=== PATIENT | female | born 1960 | race African-American/Black ===

== ENCOUNTER 2020-11-07 18:11 | Inpatient (IN) | payer MEDICAID ==
[~2020-11-07] VITALS: Ht 160 cm; Wt 72.6 kg
[~2020-11-07 18:11] MED LIST: ALBU05 IH; AMLO10TA4 PO; BACL-141 PO; BISA10SU62 RC; CLON0.1T GT; DEXT1DRO6 OP; DOCU-138 GT; FERR220S12 PO; FRUC15LI PO; HYDR-4134 PO; MOM PO; MULT-1146 PO; NA P230E RC; OMEP20CA14 PO; ONDA4SOL2 PO; POLY17PO3 PO; TOPUD GT
[2020-11-07 19:22] LABS: BASOPHILS % 0.3 % (0.0-2.0); CHLORIDE 104 mEq/L (98-107); EOSINOPHILS % 2.4 % (0.0-5.0); HEMATOCRIT. 31.7 % (36.0-48.0); HEMOGLOBIN. 10.8 g/dL (12.0-16.0); LYMPHOCYTES % 34.9 % (20.0-50.0); MEAN CORPUSCULAR HEMOGLOBIN 28.7 pg (28.0-32.0); MEAN CORPUSCULAR VOLUME 84.7 fL (81.0-99.0); MEAN PLATELET VOLUME 11.3 fl (7.4-10.4); MONOCYTES % 9.3 % (2.0-8.0); NEUTROPHILS % 53.1 % (40.0-76.0); PLATELET 157 x1000/uL (130-400); RED BLOOD CELL COUNT 3.74 mill/uL (4.2-5.4); RED CELL DISTRIBUTION WIDTH 14.5 % (11.6-14.6)
[2020-11-07 19:27] LABS: PROTHROMBIN TIME 10.3 sec (9.6-11.0)
[2020-11-07] MEDS ORDERED: CEFTRIAXONE 1 G PREMIX 50 ML IV NR (21:00)
[2020-11-07] MEDS ORDERED: IOHEXOL-300 100 ML BOTTLE ONE (22:38)
[2020-11-08] MEDS ORDERED: MAGNESIUM/ALUMINUM HYDROXIDE/SIMETHICONE 30ML UDC PO PRN (09:45)
[2020-11-08] MEDS ORDERED: CLONIDINE 0.1MG TABLET PO PRN (09:45)
[2020-11-08] MEDS ORDERED: ONDANSETRON HCL 4MG/2ML INJ IV PRN (09:45)
[2020-11-08] MEDS ORDERED: ACETAMINOPHEN 650MG SUPP PR PRN (09:45)
[2020-11-08] MEDS ORDERED: IPRATROPIUM/ALBUTEROL 0.5-3(2.5)MG/3ML NEB HHN PRN (09:45)
[2020-11-08] MEDS ORDERED: DOCUSATE SODIUM 100MG CAPSULE PO PRN (09:45)
[2020-11-08 12:14] LABS: CLARITY URINE CLOUDY (CLEAR); COLOR URINE DARK YELLOW (YELLOW); KETONES URINE NEGATIVE (NEGATIVE); LEUKOCYTE ESTERASE URINE 2+ (NEGATIVE); NITRITE URINE NEGATIVE (NEGATIVE); OCCULT BLOOD URINE TRACE (NEGATIVE); PH URINE >=9.0 (4.5-8.0); PROTEIN URINE 3+ (NEGATIVE); SPECIFIC GRAVITY URINE 1.053 (1.005-1.030)
[2020-11-08] MEDS: PANTOPRAZOLE SODIUM 40 MG/VIAL IV SCH (12:50)
[2020-11-08] MEDS: ENOXAPARIN 40MG/0.4ML SYR SUBCUT SCH (12:50)
[2020-11-08 13:47] LABS: BG BASE EXCESS 3.3 mmol/L (-2.0-2.0); BG CARBOXYHEMOGLOBIN 0.3 % (0.5-1.5); BG DEOXYHEMOGLOBIN 1.4 % (0.0-5.0); BG FRACTION INSPIRED OXYGEN 50; BG METHEMOGLOBIN 0.3 % (0.0-1.5); BG OXYGEN SATURATION 98.6 % (92.0-98.5); BG PCO2 33.2 mmHg (35.0-45.0); BG PH 7.512 (7.350-7.450); BG PO2 134.2 mmHg (75.0-100.0); BG SAMPLE SITE RIGHT RADIAL; BG TOTAL HEMOGLOBIN 11.2 g/dL (12.0-18.0); BG TOTAL RESPIRATORY RATE 14 b/min; BG VENT MODE VENT - AC
[2020-11-08 15:34] LABS: TOTAL IRON BINDING CAPACITY 200 ug/dL (250-450)
[2020-11-08 16:00] LABS: VITAMIN B12 SERUM >2000 pg/mL pg/mL (211-911)
[2020-11-08 16:21] LABS: FERRITIN 1774 ng/mL (10-291)
[2020-11-08] MEDS: AZITHROMYCIN 500 MG in DEXT 5% WATER 250 ML IV SCH (18:18)
[2020-11-08] MEDS: PIPERACILLIN/TAZOBACTAM 3.375 G in DEXT 5% WATER 100 ML IV SCH (18:18)
[2020-11-08] MEDS: IPRATROPIUM/ALBUTEROL 0.5-3(2.5)MG/3ML NEB HHN SCH (20:23)
[2020-11-08 21:36] LABS: CREATINE KINASE 685 IU/L (26-192)
[2020-11-09] MEDS ORDERED: ACETYLCYSTEINE 100MG/ML 10% VIAL 4ML INH SCH
[2020-11-09] MEDS: PIPERACILLIN/TAZOBACTAM 3.375 G in DEXT 5% WATER 100 ML IV SCH ×4 (00:37→19:25)
[2020-11-09] MEDS: IPRATROPIUM/ALBUTEROL 0.5-3(2.5)MG/3ML NEB HHN SCH ×5 (01:36→20:50)
[2020-11-09 08:03] LABS: BASOPHILS % 0.3 % (0.0-2.0); HEMATOCRIT. 30.9 % (36.0-48.0); HEMOGLOBIN. 10.3 g/dL (12.0-16.0); LYMPHOCYTES % 27.9 % (20.0-50.0); MEAN CORPUSCULAR HEMOGLOBIN 28.9 pg (28.0-32.0); MEAN CORPUSCULAR VOLUME 86.7 fL (81.0-99.0); MEAN PLATELET VOLUME 9.3 fl (7.4-10.4); MONOCYTES % 13.7 % (2.0-8.0); NEUTROPHILS % 55.1 % (40.0-76.0); PLATELET 134 x1000/uL (130-400); RED BLOOD CELL COUNT 3.57 mill/uL (4.2-5.4); RED CELL DISTRIBUTION WIDTH 14.7 % (11.6-14.6)
[2020-11-09 08:18] LABS: CHLORIDE 101 mEq/L (98-107)
[2020-11-09 08:26] LABS: LDL CHOLESTEROL 67 mg/dL (5-100)
[2020-11-09 08:28] LABS: HDL CHOLESTEROL 36 mg/dL (40-59)
[2020-11-09 08:29] LABS: T4 FREE 1.34 ng/dL (0.76-1.46)
[2020-11-09] MEDS: ENOXAPARIN 40MG/0.4ML SYR SUBCUT SCH (11:00)
[2020-11-09] MEDS: PANTOPRAZOLE SODIUM 40 MG/VIAL IV SCH (12:42)
[2020-11-09] MEDS: ACETYLCYSTEINE 100MG/ML 10% VIAL 4ML INH SCH (15:27)
[2020-11-09] MEDS ORDERED: NOREPINEPHRINE 8MG/250ML PMX 250 ML IV PRN (18:00)
[2020-11-09] MEDS ORDERED: KCL 20MEQ/100ML PREMIX 100 ML IV NR (18:30)
[2020-11-09] MEDS: AZITHROMYCIN 500 MG in DEXT 5% WATER 250 ML IV SCH (20:14)
[2020-11-10] MEDS: PIPERACILLIN/TAZOBACTAM 3.375 G in DEXT 5% WATER 100 ML IV SCH ×2 (00:10→06:07)
[2020-11-10] MEDS: ACETYLCYSTEINE 100MG/ML 10% VIAL 4ML INH SCH ×4 (00:33→16:05)
[2020-11-10] MEDS: IPRATROPIUM/ALBUTEROL 0.5-3(2.5)MG/3ML NEB HHN SCH ×7 (00:33→21:31)
[2020-11-10 04:26] LABS: BASOPHILS % 0.4 % (0.0-2.0); EOSINOPHILS % 4.9 % (0.0-5.0); HEMATOCRIT. 31.5 % (36.0-48.0); HEMOGLOBIN. 10.6 g/dL (12.0-16.0); LYMPHOCYTES % 28.8 % (20.0-50.0); MEAN CORPUSCULAR VOLUME 85.7 fL (81.0-99.0); MEAN PLATELET VOLUME 9.7 fl (7.4-10.4); MONOCYTES % 14.2 % (2.0-8.0); NEUTROPHILS % 51.7 % (40.0-76.0); PLATELET 170 x1000/uL (130-400); RED BLOOD CELL COUNT 3.67 mill/uL (4.2-5.4); RED CELL DISTRIBUTION WIDTH 14.2 % (11.6-14.6)
[2020-11-10 04:38] LABS: CHLORIDE 110 mEq/L (98-107)
[2020-11-10] MEDS: PANTOPRAZOLE SODIUM 40 MG/VIAL IV SCH (09:00)
[2020-11-10] MEDS: ENOXAPARIN 40MG/0.4ML SYR SUBCUT SCH (11:00)
[2020-11-10] MEDS: MIDODRINE HCL 5MG TABLET PO SCH ×3 (11:45→17:53)
[2020-11-10] MEDS: PIPERACILLIN/TAZ 3.375G PREMIX 50 ML IV SCH ×2 (12:00→18:00)
[2020-11-10] MEDS ORDERED: NOREPINEPHRINE 8 MG in DEXTROSE 5% WATER 250 ML IV PRN (13:00)
[2020-11-10] MEDS: AZITHROMYCIN 500 MG in DEXT 5% WATER 250 ML IV SCH (18:00)
[2020-11-11] MEDS: PIPERACILLIN/TAZ 3.375G PREMIX 50 ML IV SCH ×4 (00:30→19:07)
[2020-11-11] MEDS: IPRATROPIUM/ALBUTEROL 0.5-3(2.5)MG/3ML NEB HHN SCH ×6 (00:56→20:23)
[2020-11-11] MEDS: ACETYLCYSTEINE 100MG/ML 10% VIAL 4ML INH SCH ×2 (00:56→14:56)
[2020-11-11] MEDS: MIDODRINE HCL 5MG TABLET PO SCH ×3 (09:00→17:00)
[2020-11-11] MEDS: PANTOPRAZOLE SODIUM 40 MG/VIAL IV SCH (11:00)
[2020-11-11] MEDS: ENOXAPARIN 40MG/0.4ML SYR SUBCUT SCH (17:00)
[2020-11-11] MEDS: AZITHROMYCIN 500 MG in DEXT 5% WATER 250 ML IV SCH (19:07)
[2020-11-12] MEDS: PIPERACILLIN/TAZ 3.375G PREMIX 50 ML IV SCH ×2 (00:39→06:09)
[2020-11-12] MEDS: IPRATROPIUM/ALBUTEROL 0.5-3(2.5)MG/3ML NEB HHN SCH ×6 (01:13→21:41)
[2020-11-12] MEDS: ACETYLCYSTEINE 100MG/ML 10% VIAL 4ML INH SCH (01:13)
[2020-11-12 05:40] LABS: BASOPHILS % 0.4 % (0.0-2.0); CHLORIDE 109 mEq/L (98-107); EOSINOPHILS % 4.6 % (0.0-5.0); HEMATOCRIT. 30.9 % (36.0-48.0); HEMOGLOBIN. 10.4 g/dL (12.0-16.0); LYMPHOCYTES % 20.8 % (20.0-50.0); MEAN CORPUSCULAR HEMOGLOBIN 28.8 pg (28.0-32.0); MEAN CORPUSCULAR VOLUME 85.3 fL (81.0-99.0); MEAN PLATELET VOLUME 9.6 fl (7.4-10.4); MONOCYTES % 9.3 % (2.0-8.0); NEUTROPHILS % 64.9 % (40.0-76.0); PLATELET 212 x1000/uL (130-400); RED BLOOD CELL COUNT 3.62 mill/uL (4.2-5.4); RED CELL DISTRIBUTION WIDTH 14.5 % (11.6-14.6)
[2020-11-12] MEDS: MIDODRINE HCL 5MG TABLET PO SCH ×3 (09:00→17:00)
[2020-11-12] MEDS: PANTOPRAZOLE SODIUM 40 MG/VIAL IV SCH (09:29)
[2020-11-12] MEDS ORDERED: POTASSIUM CHLORIDE 20MEQ TABLET SR PO NR (10:30)
[2020-11-12] MEDS ORDERED: VANCOMYCIN 1 G PREMIX 200 ML IV SCH (11:00)
[2020-11-12] MEDS: ENOXAPARIN 40MG/0.4ML SYR SUBCUT SCH (11:08)
[2020-11-12] MEDS: PIPERACILLIN/TAZOBACTAM 3.375 G in DEXT 5% WATER 100 ML IV SCH ×2 (12:16→18:00)
[2020-11-12] MEDS: AZITHROMYCIN 500 MG in DEXT 5% WATER 250 ML IV SCH (18:22)
[2020-11-12] MEDS: LORAZEPAM 2MG/ML CPJ IV PRN (20:53)
[2020-11-12] MEDS ORDERED: VANCOMYCIN 750 MG PREMIX 150 ML IV SCH (23:00)
[2020-11-12] MEDS: ASCORBIC ACID 500 MG TABLET GT SCH (23:30)
[2020-11-12] MEDS: MULTIVITAMINS,THER W-MINERALS TABLET GT SCH (23:48)
[2020-11-13] VITALS (20 sets, daily range): BP systolic 56–136; BP diastolic 31–79
[2020-11-13] MEDS: ACETYLCYSTEINE 100MG/ML 10% VIAL 4ML INH SCH ×4 (00:43→16:30)
[2020-11-13] MEDS: IPRATROPIUM/ALBUTEROL 0.5-3(2.5)MG/3ML NEB HHN SCH ×6 (00:47→21:11)
[2020-11-13] MEDS: PIPERACILLIN/TAZOBACTAM 3.375 G in DEXT 5% WATER 100 ML IV SCH ×5 (06:00→20:23)
[2020-11-13 06:22] LABS: BASOPHILS % 0.3 % (0.0-2.0); EOSINOPHILS % 3.2 % (0.0-5.0); HEMATOCRIT. 33.1 % (36.0-48.0); HEMOGLOBIN. 10.9 g/dL (12.0-16.0); LYMPHOCYTES % 12.2 % (20.0-50.0); MEAN CORPUSCULAR HEMOGLOBIN 28.6 pg (28.0-32.0); MEAN CORPUSCULAR VOLUME 86.4 fL (81.0-99.0); MEAN PLATELET VOLUME 9.5 fl (7.4-10.4); MONOCYTES % 8.9 % (2.0-8.0); NEUTROPHILS % 75.4 % (40.0-76.0); PLATELET 226 x1000/uL (130-400); RED BLOOD CELL COUNT 3.83 mill/uL (4.2-5.4); RED CELL DISTRIBUTION WIDTH 14.7 % (11.6-14.6)
[2020-11-13 06:29] LABS: CHLORIDE 107 mEq/L (98-107)
[2020-11-13] MEDS: MULTIVITAMINS,THER W-MINERALS TABLET GT SCH (10:27)
[2020-11-13] MEDS: ASCORBIC ACID 500 MG TABLET GT SCH ×2 (10:27→17:08)
[2020-11-13] MEDS: PANTOPRAZOLE SODIUM 40 MG/VIAL IV SCH (10:27)
[2020-11-13] MEDS: MIDODRINE HCL 5MG TABLET PO SCH ×3 (10:27→17:08)
[2020-11-13] MEDS: POTASSIUM CHLORIDE 20MEQ TABLET SR PO SCH (12:29)
[2020-11-13] MEDS: ENOXAPARIN 40MG/0.4ML SYR SUBCUT SCH (12:29)
[2020-11-14] VITALS (47 sets, daily range): BP systolic 84–124; BP diastolic 20–95
[2020-11-14] MEDS: IPRATROPIUM/ALBUTEROL 0.5-3(2.5)MG/3ML NEB HHN SCH ×6 (00:43→20:09)
[2020-11-14] MEDS: LORAZEPAM 2MG/ML CPJ IV PRN ×2 (06:32→17:06)
[2020-11-14] MEDS: ACETYLCYSTEINE 100MG/ML 10% VIAL 4ML INH SCH (08:10)
[2020-11-14] MEDS: POTASSIUM CHLORIDE 20MEQ TABLET SR PO SCH (09:06)
[2020-11-14] MEDS: MULTIVITAMINS,THER W-MINERALS TABLET GT SCH (09:06)
[2020-11-14] MEDS: PANTOPRAZOLE SODIUM 40 MG/VIAL IV SCH (09:06)
[2020-11-14] MEDS: ASCORBIC ACID 500 MG TABLET GT SCH ×2 (09:06→16:42)
[2020-11-14] MEDS: MIDODRINE HCL 5MG TABLET PO SCH ×3 (09:06→16:43)
[2020-11-14] MEDS: ENOXAPARIN 40MG/0.4ML SYR SUBCUT SCH (11:25)
[2020-11-15] VITALS (83 sets, daily range): BP systolic 79–177; BP diastolic 41–134
[2020-11-15] MEDS: IPRATROPIUM/ALBUTEROL 0.5-3(2.5)MG/3ML NEB HHN SCH ×6 (00:07→21:57)
[2020-11-15 05:34] LABS: BASOPHILS % 0.2 % (0.0-2.0); EOSINOPHILS % 2.1 % (0.0-5.0); HEMOGLOBIN. 9.6 g/dL (12.0-16.0); LYMPHOCYTES % 13.7 % (20.0-50.0); MEAN CORPUSCULAR HEMOGLOBIN 28.4 pg (28.0-32.0); MEAN CORPUSCULAR VOLUME 85.9 fL (81.0-99.0); MEAN PLATELET VOLUME 10.1 fl (7.4-10.4); MONOCYTES % 8.4 % (2.0-8.0); NEUTROPHILS % 75.6 % (40.0-76.0); PLATELET 292 x1000/uL (130-400); RED BLOOD CELL COUNT 3.38 mill/uL (4.2-5.4); RED CELL DISTRIBUTION WIDTH 14.9 % (11.6-14.6)
[2020-11-15 05:35] LABS: CHLORIDE 111 mEq/L (98-107)
[2020-11-15 06:22] LABS: HEPATITIS B SURFACE ANTIGEN NEGATIVE
[2020-11-15 06:51] LABS: HEPATITIS A AB IGM NEGATIVE (NEGATIVE)
[2020-11-15] MEDS: ASCORBIC ACID 500 MG TABLET GT SCH ×2 (08:12→16:32)
[2020-11-15] MEDS: PANTOPRAZOLE SODIUM 40 MG/VIAL IV SCH (08:12)
[2020-11-15] MEDS: MULTIVITAMINS,THER W-MINERALS TABLET GT SCH (08:13)
[2020-11-15] MEDS: MIDODRINE HCL 5MG TABLET PO SCH ×3 (08:13→16:32)
[2020-11-15] MEDS: POTASSIUM CHLORIDE 20MEQ TABLET SR PO SCH (08:13)
[2020-11-15] MEDS: ENOXAPARIN 40MG/0.4ML SYR SUBCUT SCH (10:32)
[2020-11-15] MEDS ORDERED: SODIUM CHLORIDE 0.9% 500 ML IV NR (14:45)
[2020-11-16] VITALS (61 sets, daily range): BP systolic 52–131; BP diastolic 22–86
[2020-11-16] MEDS: IPRATROPIUM/ALBUTEROL 0.5-3(2.5)MG/3ML NEB HHN SCH ×6 (01:01→21:13)
[2020-11-16] MEDS: PANTOPRAZOLE SODIUM 40 MG/VIAL IV SCH (09:20)
[2020-11-16] MEDS: MIDODRINE HCL 5MG TABLET PO SCH (09:21)
[2020-11-16] MEDS: POTASSIUM CHLORIDE 20MEQ TABLET SR PO SCH (09:23)
[2020-11-16] MEDS: MULTIVITAMINS,THER W-MINERALS TABLET GT SCH (09:24)
[2020-11-16] MEDS: ASCORBIC ACID 500 MG TABLET GT SCH (09:24)
[2020-11-16] MEDS: ENOXAPARIN 40MG/0.4ML SYR SUBCUT SCH (10:46)
[2020-11-17] VITALS (59 sets, daily range): BP systolic 62–165; BP diastolic 19–111
[2020-11-17] MEDS: IPRATROPIUM/ALBUTEROL 0.5-3(2.5)MG/3ML NEB HHN SCH ×6 (00:51→20:47)
[2020-11-17] MEDS: POTASSIUM CHLORIDE 20MEQ TABLET SR PO SCH (09:27)
[2020-11-17] MEDS: PANTOPRAZOLE SODIUM 40 MG/VIAL IV SCH (09:27)
[2020-11-17] MEDS: MULTIVITAMINS,THER W-MINERALS TABLET GT SCH (09:28)
[2020-11-17] MEDS: ASCORBIC ACID 500 MG TABLET GT SCH ×2 (09:31→17:24)
[2020-11-17] MEDS: MIDODRINE HCL 5MG TABLET PO SCH ×3 (09:32→17:25)
[2020-11-17] MEDS: ENOXAPARIN 40MG/0.4ML SYR SUBCUT SCH (11:00)
[2020-11-17 13:09] LABS: HEMATOCRIT 28.1 % (36.0-48.0); HEMOGLOBIN 9.3 g/dL (12.0-16.0); MEAN CORPUSCULAR HEMOGLOBIN 28.8 pg (28.0-32.0); MEAN CORPUSCULAR VOLUME 86.8 fL (81.0-99.0); PLATELET 273 x1000/uL (130-400); RED BLOOD CELL COUNT 3.24 mill/uL (4.2-5.4); RED CELL DISTRIBUTION WIDTH 14.9 % (11.6-14.6)
[2020-11-17 13:33] LABS: CHLORIDE 112 mEq/L (98-107)
[2020-11-17 14:41] LABS: BG BASE EXCESS 0.3 mmol/L (-2.0-2.0); BG CARBOXYHEMOGLOBIN 0.3 % (0.5-1.5); BG DEOXYHEMOGLOBIN 1.5 % (0.0-5.0); BG FRACTION INSPIRED OXYGEN 40; BG HCO3 ACT 24.5 mmol/L (22.0-26.0); BG METHEMOGLOBIN 0.3 % (0.0-1.5); BG OXYGEN SATURATION 98.5 % (92.0-98.5); BG OXYHEMOGLOBIN 97.9 % (94.0-97.0); BG PH 7.428 (7.350-7.450); BG PO2 135.1 mmHg (75.0-100.0); BG SAMPLE SITE RIGHT BRACHIAL; BG TOTAL HEMOGLOBIN 10.4 g/dL (12.0-18.0); BG VENT MODE VENT - AC
[2020-11-18] VITALS (45 sets, daily range): BP systolic 69–145; BP diastolic 34–95
[2020-11-18] MEDS: IPRATROPIUM/ALBUTEROL 0.5-3(2.5)MG/3ML NEB HHN SCH ×6 (00:52→20:06)
[2020-11-18] MEDS: PANTOPRAZOLE SODIUM 40 MG/VIAL IV SCH (10:31)
[2020-11-18] MEDS: MULTIVITAMINS,THER W-MINERALS TABLET GT SCH (10:32)
[2020-11-18] MEDS: ASCORBIC ACID 500 MG TABLET GT SCH ×2 (10:32→16:36)
[2020-11-18] MEDS: ENOXAPARIN 40MG/0.4ML SYR SUBCUT SCH (10:33)
[2020-11-18] MEDS: MIDODRINE HCL 5MG TABLET PO SCH ×3 (10:35→16:36)
[2020-11-19] VITALS (33 sets, daily range): BP systolic 97–150; BP diastolic 19–86
[2020-11-19] MEDS: IPRATROPIUM/ALBUTEROL 0.5-3(2.5)MG/3ML NEB HHN SCH ×5 (00:05→16:26)
[2020-11-19] MEDS: PANTOPRAZOLE SODIUM 40 MG/VIAL IV SCH (08:21)
[2020-11-19] MEDS: MIDODRINE HCL 5MG TABLET PO SCH ×3 (08:21→16:58)
[2020-11-19] MEDS: MULTIVITAMINS,THER W-MINERALS TABLET GT SCH (08:22)
[2020-11-19] MEDS: ASCORBIC ACID 500 MG TABLET GT SCH ×2 (08:22→16:58)
[2020-11-19 09:33] LABS: BASOPHILS % 0.4 % (0.0-2.0); HEMATOCRIT. 30.5 % (36.0-48.0); HEMOGLOBIN. 10.1 g/dL (12.0-16.0); LYMPHOCYTES % 28.6 % (20.0-50.0); MEAN CORPUSCULAR HEMOGLOBIN 28.5 pg (28.0-32.0); MEAN CORPUSCULAR VOLUME 85.8 fL (81.0-99.0); MEAN PLATELET VOLUME 9.3 fl (7.4-10.4); MONOCYTES % 10.8 % (2.0-8.0); NEUTROPHILS % 55.2 % (40.0-76.0); PLATELET 263 x1000/uL (130-400); RED BLOOD CELL COUNT 3.56 mill/uL (4.2-5.4); RED CELL DISTRIBUTION WIDTH 15.1 % (11.6-14.6)
[2020-11-19 09:42] LABS: CHLORIDE 109 mEq/L (98-107)
[2020-11-19] MEDS: ENOXAPARIN 40MG/0.4ML SYR SUBCUT SCH (19:01)
[2020-11-20] VITALS (33 sets, daily range): BP systolic 98–154; BP diastolic 37–89
[2020-11-20] MEDS: IPRATROPIUM/ALBUTEROL 0.5-3(2.5)MG/3ML NEB HHN SCH ×4 (00:45→23:50)
[2020-11-20] MEDS: MULTIVITAMINS,THER W-MINERALS TABLET GT SCH (09:00)
[2020-11-20] MEDS: MIDODRINE HCL 5MG TABLET PO SCH ×3 (09:17→17:55)
[2020-11-20] MEDS: ASCORBIC ACID 500 MG TABLET GT SCH ×2 (09:17→17:55)
[2020-11-20] MEDS: PANTOPRAZOLE SODIUM 40 MG/VIAL IV SCH (09:17)
[2020-11-20] MEDS: ENOXAPARIN 40MG/0.4ML SYR SUBCUT SCH (09:18)
[2020-11-21] VITALS (37 sets, daily range): BP systolic 57–173; BP diastolic 24–123
[2020-11-21 06:03] LABS: BASOPHILS % 0.4 % (0.0-2.0); EOSINOPHILS % 4.9 % (0.0-5.0); HEMATOCRIT. 29.3 % (36.0-48.0); HEMOGLOBIN. 9.7 g/dL (12.0-16.0); LYMPHOCYTES % 30.1 % (20.0-50.0); MEAN CORPUSCULAR HEMOGLOBIN 28.8 pg (28.0-32.0); MEAN CORPUSCULAR VOLUME 87.6 fL (81.0-99.0); MEAN PLATELET VOLUME 9.4 fl (7.4-10.4); MONOCYTES % 10.7 % (2.0-8.0); NEUTROPHILS % 53.9 % (40.0-76.0); PLATELET 270 x1000/uL (130-400); RED BLOOD CELL COUNT 3.35 mill/uL (4.2-5.4); RED CELL DISTRIBUTION WIDTH 15.4 % (11.6-14.6)
[2020-11-21 06:12] LABS: CHLORIDE 110 mEq/L (98-107)
[2020-11-21] MEDS: MIDODRINE HCL 5MG TABLET PO SCH ×3 (09:01→18:17)
[2020-11-21] MEDS: ASCORBIC ACID 500 MG TABLET GT SCH ×2 (09:01→18:17)
[2020-11-21] MEDS: MULTIVITAMINS,THER W-MINERALS TABLET GT SCH (09:01)
[2020-11-21] MEDS: PANTOPRAZOLE SODIUM 40 MG/VIAL IV SCH (09:01)
[2020-11-21] MEDS: ENOXAPARIN 40MG/0.4ML SYR SUBCUT SCH (09:01)
[2020-11-21] MEDS: IPRATROPIUM/ALBUTEROL 0.5-3(2.5)MG/3ML NEB HHN SCH ×2 (09:27→17:36)
[2020-11-22] VITALS (24 sets, daily range): BP systolic 78–160; BP diastolic 4–92
[2020-11-22] MEDS: IPRATROPIUM/ALBUTEROL 0.5-3(2.5)MG/3ML NEB HHN SCH ×3 (00:17→16:51)
[2020-11-22] MEDS: ENOXAPARIN 40MG/0.4ML SYR SUBCUT SCH (10:18)
[2020-11-22] MEDS: MULTIVITAMINS,THER W-MINERALS TABLET GT SCH (10:19)
[2020-11-22] MEDS: ASCORBIC ACID 500 MG TABLET GT SCH ×2 (10:19→17:08)
[2020-11-22] MEDS: PANTOPRAZOLE SODIUM 40 MG/VIAL IV SCH (10:19)
[2020-11-22] MEDS: MIDODRINE HCL 5MG TABLET PO SCH ×3 (10:20→17:09)
[2020-11-23] VITALS (26 sets, daily range): BP systolic 61–147; BP diastolic 25–81
[2020-11-23] MEDS: IPRATROPIUM/ALBUTEROL 0.5-3(2.5)MG/3ML NEB HHN SCH ×4 (00:02→20:54)
[2020-11-23 05:48] LABS: BASOPHILS % 0.4 % (0.0-2.0); EOSINOPHILS % 4.6 % (0.0-5.0); HEMATOCRIT. 26.8 % (36.0-48.0); HEMOGLOBIN. 8.9 g/dL (12.0-16.0); LYMPHOCYTES % 26.6 % (20.0-50.0); MEAN CORPUSCULAR HEMOGLOBIN 28.9 pg (28.0-32.0); MEAN CORPUSCULAR VOLUME 86.4 fL (81.0-99.0); MEAN PLATELET VOLUME 9.6 fl (7.4-10.4); MONOCYTES % 8.3 % (2.0-8.0); NEUTROPHILS % 60.1 % (40.0-76.0); PLATELET 239 x1000/uL (130-400); RED CELL DISTRIBUTION WIDTH 15.2 % (11.6-14.6)
[2020-11-23 05:49] LABS: CHLORIDE 108 mEq/L (98-107)
[2020-11-23] MEDS: ASCORBIC ACID 500 MG TABLET GT SCH ×2 (09:26→16:11)
[2020-11-23] MEDS: PANTOPRAZOLE SODIUM 40 MG/VIAL IV SCH (09:29)
[2020-11-23] MEDS: MULTIVITAMINS,THER W-MINERALS TABLET GT SCH (09:29)
[2020-11-23] MEDS: ENOXAPARIN 40MG/0.4ML SYR SUBCUT SCH (09:29)
[2020-11-23] MEDS: MIDODRINE HCL 5MG TABLET PO SCH ×3 (09:30→16:12)
[2020-11-24] VITALS (25 sets, daily range): BP systolic 97–174; BP diastolic 58–134
[2020-11-24] MEDS: IPRATROPIUM/ALBUTEROL 0.5-3(2.5)MG/3ML NEB HHN SCH ×2 (09:25→21:17)
[2020-11-24] MEDS: ENOXAPARIN 40MG/0.4ML SYR SUBCUT SCH (10:07)
[2020-11-24] MEDS: PANTOPRAZOLE SODIUM 40 MG/VIAL IV SCH (10:07)
[2020-11-24] MEDS: ASCORBIC ACID 500 MG TABLET GT SCH ×2 (10:07→17:43)
[2020-11-24] MEDS: MIDODRINE HCL 5MG TABLET PO SCH ×3 (10:08→17:46)
[2020-11-24] MEDS: MULTIVITAMINS,THER W-MINERALS TABLET GT SCH (10:08)
[2020-11-25] VITALS (19 sets, daily range): BP systolic 109–160; BP diastolic 31–122
[2020-11-25] MEDS: IPRATROPIUM/ALBUTEROL 0.5-3(2.5)MG/3ML NEB HHN SCH ×3 (09:22→21:13)
[2020-11-25] MEDS: PANTOPRAZOLE SODIUM 40 MG/VIAL IV SCH (09:50)
[2020-11-25] MEDS: MIDODRINE HCL 5MG TABLET PO SCH ×3 (09:51→17:52)
[2020-11-25] MEDS: ASCORBIC ACID 500 MG TABLET GT SCH ×2 (09:52→17:53)
[2020-11-25] MEDS: ENOXAPARIN 40MG/0.4ML SYR SUBCUT SCH (09:52)
[2020-11-25] MEDS: MULTIVITAMINS,THER W-MINERALS TABLET GT SCH (09:53)
[2020-11-26] VITALS (41 sets, daily range): BP systolic 107–154; BP diastolic 50–93
[2020-11-26 06:00] LABS: BASOPHILS % 0.5 % (0.0-2.0); EOSINOPHILS % 7.4 % (0.0-5.0); HEMATOCRIT. 27.9 % (36.0-48.0); HEMOGLOBIN. 9.4 g/dL (12.0-16.0); LYMPHOCYTES % 30.9 % (20.0-50.0); MEAN CORPUSCULAR HEMOGLOBIN 29.2 pg (28.0-32.0); MEAN CORPUSCULAR VOLUME 86.8 fL (81.0-99.0); MEAN PLATELET VOLUME 9.8 fl (7.4-10.4); MONOCYTES % 7.6 % (2.0-8.0); NEUTROPHILS % 53.6 % (40.0-76.0); PLATELET 182 x1000/uL (130-400); RED BLOOD CELL COUNT 3.22 mill/uL (4.2-5.4); RED CELL DISTRIBUTION WIDTH 15.5 % (11.6-14.6)
[2020-11-26 06:07] LABS: CHLORIDE 111 mEq/L (98-107)
[2020-11-26] MEDS: PANTOPRAZOLE SODIUM 40 MG/VIAL IV SCH (08:41)
[2020-11-26] MEDS: ENOXAPARIN 40MG/0.4ML SYR SUBCUT SCH (08:42)
[2020-11-26] MEDS: ASCORBIC ACID 500 MG TABLET GT SCH ×2 (08:42→16:53)
[2020-11-26] MEDS: MIDODRINE HCL 5MG TABLET PO SCH ×3 (08:43→16:54)
[2020-11-26] MEDS: MULTIVITAMINS,THER W-MINERALS TABLET GT SCH (08:44)
[2020-11-26] MEDS: IPRATROPIUM/ALBUTEROL 0.5-3(2.5)MG/3ML NEB HHN SCH ×3 (10:49→20:46)
[2020-11-27] VITALS (52 sets, daily range): BP systolic 70–145; BP diastolic 41–88
[2020-11-27] MEDS: IPRATROPIUM/ALBUTEROL 0.5-3(2.5)MG/3ML NEB HHN SCH ×3 (00:14→16:34)
[2020-11-27] MEDS: MULTIVITAMINS,THER W-MINERALS TABLET GT SCH (09:56)
[2020-11-27] MEDS: ASCORBIC ACID 500 MG TABLET GT SCH ×2 (09:56→18:07)
[2020-11-27] MEDS: MIDODRINE HCL 5MG TABLET PO SCH ×3 (09:56→18:07)
[2020-11-27] MEDS: ENOXAPARIN 40MG/0.4ML SYR SUBCUT SCH (09:59)
[2020-11-27] MEDS: PANTOPRAZOLE SODIUM 40 MG/VIAL IV SCH (10:00)
[2020-11-28] VITALS (43 sets, daily range): BP systolic 95–155; BP diastolic 54–90
[2020-11-28 06:15] LABS: BASOPHILS % 0.5 % (0.0-2.0); EOSINOPHILS % 8.7 % (0.0-5.0); HEMATOCRIT. 28.5 % (36.0-48.0); HEMOGLOBIN. 9.3 g/dL (12.0-16.0); LYMPHOCYTES % 31.3 % (20.0-50.0); MEAN CORPUSCULAR HEMOGLOBIN 28.8 pg (28.0-32.0); MEAN CORPUSCULAR VOLUME 88.1 fL (81.0-99.0); MEAN PLATELET VOLUME 10.4 fl (7.4-10.4); MONOCYTES % 9.3 % (2.0-8.0); NEUTROPHILS % 50.2 % (40.0-76.0); PLATELET 164 x1000/uL (130-400); RED BLOOD CELL COUNT 3.23 mill/uL (4.2-5.4); RED CELL DISTRIBUTION WIDTH 16.4 % (11.6-14.6)
[2020-11-28 06:27] LABS: CHLORIDE 112 mEq/L (98-107)
[2020-11-28] MEDS: PANTOPRAZOLE SODIUM 40 MG/VIAL IV SCH (08:18)
[2020-11-28] MEDS: ENOXAPARIN 40MG/0.4ML SYR SUBCUT SCH (08:19)
[2020-11-28] MEDS: MIDODRINE HCL 5MG TABLET PO SCH ×3 (08:19→17:23)
[2020-11-28] MEDS: MULTIVITAMINS,THER W-MINERALS TABLET GT SCH (08:19)
[2020-11-28] MEDS: ASCORBIC ACID 500 MG TABLET GT SCH ×2 (08:19→17:24)
[2020-11-28] MEDS: IPRATROPIUM/ALBUTEROL 0.5-3(2.5)MG/3ML NEB HHN SCH ×2 (08:42→16:06)
[2020-11-28] MEDS ORDERED: DOPAMINE 400MG/250ML PREMIX 250 ML IV PRN (18:00)
[2020-11-29] VITALS (53 sets, daily range): BP systolic 103–160; BP diastolic 58–93
[2020-11-29] MEDS: IPRATROPIUM/ALBUTEROL 0.5-3(2.5)MG/3ML NEB HHN SCH ×2 (00:56→08:25)
[2020-11-29] MEDS: MULTIVITAMINS,THER W-MINERALS TABLET GT SCH (08:16)
[2020-11-29] MEDS: PANTOPRAZOLE SODIUM 40 MG/VIAL IV SCH (08:16)
[2020-11-29] MEDS: ASCORBIC ACID 500 MG TABLET GT SCH ×2 (08:17→16:25)
[2020-11-29] MEDS: MIDODRINE HCL 5MG TABLET PO SCH ×3 (08:17→16:27)
[2020-11-29] MEDS: ENOXAPARIN 40MG/0.4ML SYR SUBCUT SCH (08:17)
[2020-11-29] MEDS: IPRATROPIUM/ALBUTEROL 0.5-3(2.5)MG/3ML NEB HHN PRN ×2 (11:47→15:27)
[2020-11-29 17:32] LABS: HEMATOCRIT 31.2 % (36.0-48.0); HEMOGLOBIN 10.2 g/dL (12.0-16.0); MEAN CORPUSCULAR HEMOGLOBIN 28.6 pg (28.0-32.0); MEAN CORPUSCULAR VOLUME 87.8 fL (81.0-99.0); PLATELET 181 x1000/uL (130-400); RED BLOOD CELL COUNT 3.55 mill/uL (4.2-5.4); RED CELL DISTRIBUTION WIDTH 16.2 % (11.6-14.6)
[2020-11-29 17:39] LABS: CHLORIDE 110 mEq/L (98-107)
[2020-11-30] VITALS (78 sets, daily range): BP systolic 96–137; BP diastolic 51–90
[2020-11-30] MEDS: IPRATROPIUM/ALBUTEROL 0.5-3(2.5)MG/3ML NEB HHN SCH ×4 (00:19→15:54)
[2020-11-30 05:25] LABS: BASOPHILS % 0.4 % (0.0-2.0); EOSINOPHILS % 9.6 % (0.0-5.0); HEMATOCRIT. 29.1 % (36.0-48.0); HEMOGLOBIN. 9.4 g/dL (12.0-16.0); LYMPHOCYTES % 25.7 % (20.0-50.0); MEAN CORPUSCULAR HEMOGLOBIN 28.7 pg (28.0-32.0); MEAN CORPUSCULAR VOLUME 88.9 fL (81.0-99.0); MEAN PLATELET VOLUME 10.4 fl (7.4-10.4); MONOCYTES % 7.1 % (2.0-8.0); NEUTROPHILS % 57.2 % (40.0-76.0); PLATELET 156 x1000/uL (130-400); RED BLOOD CELL COUNT 3.28 mill/uL (4.2-5.4); RED CELL DISTRIBUTION WIDTH 16.4 % (11.6-14.6)
[2020-11-30 06:24] LABS: CHLORIDE 111 mEq/L (98-107)
[2020-11-30] MEDS: PANTOPRAZOLE SODIUM 40 MG/VIAL IV SCH (09:28)
[2020-11-30] MEDS: ENOXAPARIN 40MG/0.4ML SYR SUBCUT SCH (09:29)
[2020-11-30] MEDS: MULTIVITAMINS,THER W-MINERALS TABLET GT SCH (09:29)
[2020-11-30] MEDS: ASCORBIC ACID 500 MG TABLET GT SCH ×2 (09:29→18:01)
[2020-11-30] MEDS: MIDODRINE HCL 5MG TABLET PO SCH ×3 (09:29→18:02)
[2020-12-01] VITALS (25 sets, daily range): BP systolic 99–148; BP diastolic 54–86
[2020-12-01] MEDS: IPRATROPIUM/ALBUTEROL 0.5-3(2.5)MG/3ML NEB HHN SCH ×4 (03:52→16:18)
[2020-12-01 05:27] LABS: BASOPHILS % 0.5 % (0.0-2.0); EOSINOPHILS % 9.4 % (0.0-5.0); HEMATOCRIT. 29.2 % (36.0-48.0); HEMOGLOBIN. 9.3 g/dL (12.0-16.0); LYMPHOCYTES % 33.9 % (20.0-50.0); MEAN CORPUSCULAR HEMOGLOBIN 28.5 pg (28.0-32.0); MEAN CORPUSCULAR VOLUME 89.5 fL (81.0-99.0); MEAN PLATELET VOLUME 10.4 fl (7.4-10.4); MONOCYTES % 6.9 % (2.0-8.0); NEUTROPHILS % 49.3 % (40.0-76.0); PLATELET 156 x1000/uL (130-400); RED BLOOD CELL COUNT 3.27 mill/uL (4.2-5.4); RED CELL DISTRIBUTION WIDTH 16.7 % (11.6-14.6)
[2020-12-01 05:48] LABS: CHLORIDE 110 mEq/L (98-107)
[2020-12-01] MEDS: ASCORBIC ACID 500 MG TABLET GT SCH ×2 (09:40→17:38)
[2020-12-01] MEDS: PANTOPRAZOLE SODIUM 40 MG/VIAL IV SCH (09:40)
[2020-12-01] MEDS: MULTIVITAMINS,THER W-MINERALS TABLET GT SCH (09:40)
[2020-12-01] MEDS: MIDODRINE HCL 5MG TABLET PO SCH (09:40)
[2020-12-01] MEDS: ENOXAPARIN 40MG/0.4ML SYR SUBCUT SCH (09:40)
[2020-12-02] VITALS (23 sets, daily range): BP systolic 95–142; BP diastolic 38–91
[2020-12-02] MEDS: IPRATROPIUM/ALBUTEROL 0.5-3(2.5)MG/3ML NEB HHN SCH ×2 (03:20→08:57)
[2020-12-02] MEDS: PANTOPRAZOLE SODIUM 40 MG/VIAL IV SCH (09:05)
[2020-12-02] MEDS: MULTIVITAMINS,THER W-MINERALS TABLET GT SCH (09:05)
[2020-12-02] MEDS: ASCORBIC ACID 500 MG TABLET GT SCH ×2 (09:05→17:36)
[2020-12-02] MEDS: ENOXAPARIN 40MG/0.4ML SYR SUBCUT SCH (09:05)
[2020-12-03] VITALS (10 sets, daily range): BP systolic 90–137; BP diastolic 48–80
[2020-12-03] MEDS: IPRATROPIUM/ALBUTEROL 0.5-3(2.5)MG/3ML NEB HHN SCH ×2 (08:26→15:48)
[2020-12-03] MEDS: MULTIVITAMINS,THER W-MINERALS TABLET GT SCH (08:59)
[2020-12-03] MEDS: ASCORBIC ACID 500 MG TABLET GT SCH ×2 (08:59→18:15)
[2020-12-03] MEDS: PANTOPRAZOLE SODIUM 40 MG/VIAL IV SCH (09:00)
[2020-12-03] MEDS: ENOXAPARIN 40MG/0.4ML SYR SUBCUT SCH (09:01)
[2020-12-04] VITALS (10 sets, daily range): BP systolic 98–122; BP diastolic 52–88
[2020-12-04] MEDS: PANTOPRAZOLE SODIUM 40 MG/VIAL IV SCH (08:41)
[2020-12-04] MEDS: ENOXAPARIN 40MG/0.4ML SYR SUBCUT SCH (08:41)
[2020-12-04] MEDS: ASCORBIC ACID 500 MG TABLET GT SCH (08:41)
[2020-12-04] MEDS: MULTIVITAMINS,THER W-MINERALS TABLET GT SCH (08:41)
[2020-12-04] MEDS: IPRATROPIUM/ALBUTEROL 0.5-3(2.5)MG/3ML NEB HHN SCH ×2 (10:02→15:07)
== END 2020-12-04 15:45 | DRG 720 ==
LOC: ER 18:18 → MICUSO 11-08 01:20 → MICUNO 11-26 11:15 → 5EST 12-02 20:45
PROVIDERS: ADMIT Internal Medicine; ATTEND Internal Medicine
PROC: 5A1955Z Respiratory Ventilation, Greater than 96 Consecutive Hours (ICD-10-PCS; principal; 2020-11-07)
PROC: 05HY33Z Insertion of Infusion Device into Upper Vein, Percutaneous Approach (ICD-10-PCS; 2020-11-14)
PROC: B54MZZA Ultrasonography of Right Upper Extremity Veins, Guidance (ICD-10-PCS; 2020-11-14)
DX: A41.89 Other specified sepsis (principal); U07.1 COVID-19; J12.82 Pneumonia due to coronavirus disease 2019; D64.9 Anemia, unspecified; J96.20 Acute and chronic respiratory failure, unspecified whether with hypoxia or hypercapnia; I12.9 Hypertensive chronic kidney disease with stage 1 through stage 4 chronic kidney disease, or unspecified chronic kidney disease; N18.9 Chronic kidney disease, unspecified; K92.2 Gastrointestinal hemorrhage, unspecified; E44.0 Moderate protein-calorie malnutrition; G93.40 Encephalopathy, unspecified; E78.00 Pure hypercholesterolemia, unspecified; K21.9 Gastro-esophageal reflux disease without esophagitis; K76.89 Other specified diseases of liver; E87.6 Hypokalemia; J15.9 Unspecified bacterial pneumonia; R00.1 Bradycardia, unspecified; N39.0 Urinary tract infection, site not specified; Z93.0 Tracheostomy status; Z88.8 Allergy status to other drugs, medicaments and biological substances; Z79.1 Long term (current) use of non-steroidal anti-inflammatories (NSAID); Z79.899 Other long term (current) drug therapy; Z99.11 Dependence on respirator [ventilator] status; Z93.1 Gastrostomy status; Z68.28 Body mass index [BMI] 28.0-28.9, adult; I69.398 Other sequelae of cerebral infarction; L89.90 Pressure ulcer of unspecified site, unspecified stage
CPT/HCPCS: 36415; 36600; 71045; 74177; 76937; 80048; 80053; 80061; 81003; 82270; 82375; 82550; 82607; 82728; 82746; 82805; 82962; 83540; 83550; 83735; 83880; 84100; 84439; 84443; 84484; 85025; 85027; 86705; 86709; 86803; 87070; 87077; 87186; 87340; 87426; 87635; 93005; 93970; 94002; 94003; 94640; 96365; 99285; A6261; C1725; C9113; J0456; J0696; J1650; J2060; J2405; J2543; J3370; J3480; J3490; J7040; J7060; J7608; Q9967; U0003; A4315

== ENCOUNTER 2022-05-12 15:38 | Emergency (ER) | payer MEDICAID ==
[~2022-05-12] VITALS: Ht 162.6 cm; Wt 66.0 kg
[2022-05-12] MEDS ORDERED: ERYT1OIN6 EACHEYE (16:12)
[2022-05-13 13:15] VITALS: BP 124/63
== END 2022-05-13 13:32 | disposition home or self-care (01) ==
LOC: ER 15:38 → CANBEDREQ 05-13 07:22 → ER 05-13 13:32
DX: H10.021 Other mucopurulent conjunctivitis, right eye (principal); J96.10 Chronic respiratory failure, unspecified whether with hypoxia or hypercapnia; I13.10 Hypertensive heart and chronic kidney disease without heart failure, with stage 1 through stage 4 chronic kidney disease, or unspecified chronic kidney disease; N18.9 Chronic kidney disease, unspecified; E78.00 Pure hypercholesterolemia, unspecified; K21.9 Gastro-esophageal reflux disease without esophagitis; Z86.73 Personal history of transient ischemic attack (TIA), and cerebral infarction without residual deficits; Z93.0 Tracheostomy status; Z74.01 Bed confinement status; Z99.11 Dependence on respirator [ventilator] status; Z88.8 Allergy status to other drugs, medicaments and biological substances
CPT/HCPCS: 94003; 99285; Z7610